=== PATIENT | female | born 2000 | race African-American/Black ===

== ENCOUNTER → 2020-05-19 | Outpatient (CLI) | payer OTHER ==
[2020-05-19 16:13] LABS: ALT 27 U/L (4-34); AST 29 U/L (14-36); African American GFR (CKD) >90 (>60 ml/min/1.73 sqM); Albumin 4.7 g/dL (3.5-5.0); Albumin/Globulin Ratio 1.5; Alkaline Phosphatase 110 U/L (38-126); Anion Gap 10 mmol/L; Blood Urea Nitrogen 5 mg/dL (7-17); Calcium 9.9 mg/dL (8.4-10.2); Carbon Dioxide 23 mmol/L (22-30); Chloride 105 mmol/L (98-107); Globulin 3.2 g/dL; Glucose 94 mg/dL (74-99); Non-African American GFR(CKD) >90 (>60 ml/min/1.73 sqM); Potassium 4.3 mmol/L (3.5-5.1); Sodium 138 mmol/L (137-145); Total Bilirubin 0.5 mg/dL (0.2-1.3); Total Protein 7.9 g/dL (6.3-8.2)
[2020-05-19 23:22] LABS: Basophils # (A) 0.04 X 10*3/uL (0.00-0.10); Basophils % (A) 0.5 %; Eosinophils # (A) 0.57 X 10*3/uL (0.04-0.35); Eosinophils % (A) 7.7 %; HCT 42.3 % (37.2-46.3); HGB 14.1 g/dL (12.0-15.0); Lymphocytes # (A) 1.86 X 10*3/uL (0.90-5.00); Lymphocytes % (A) 25.2 %; MCH 31.8 pg (27.0-32.0); MCHC 33.3 g/dL (32.0-37.0); MCV 95.3 fL (80.0-97.0); Mean Platelet Volume 11.3 fL (9.5-12.2); Monocytes # (A) 0.36 X 10*3/uL (0.20-1.00); Monocytes % (A) 4.9 %; Neutrophils # (A) 4.55 X 10*3/uL (1.80-7.70); Neutrophils % (A) 61.6 %; Platelet Count 230 X 10*3/uL (140-440); RBC 4.44 X 10*6/uL (4.10-5.20); RDW 11.3 % (11.5-14.5); WBC 7.39 X 10*3/uL (4.50-10.00)
[2020-05-20 06:12] LABS: Estradiol 132.8 pg/mL
== END | disposition home or self-care (01) ==
LOC: LABWHC1 14:27
PROVIDERS: ATTEND Nurse Practitioner Family
DX: F64.9 Gender identity disorder, unspecified (principal); F64.0 Transsexualism
CPT/HCPCS: 36415; 80053; 82670; 82672; 84403; 85025